=== PATIENT | male | born 1960 | race Caucasian/White ===

== ENCOUNTER → 2017-03-11 | Outpatient (CLI) | payer BC ==
[~2017-03-11] MED LIST: CITA10TA8 PO; GABA-112 PO; LISI5TAB3 PO; LORA1TAB13 PO; MORP1TAB11 PO; MULTTAB58 PO; OMEG1CAP84; niacin PO
--- NOTE | 2017-03-11 12:39 | DIAGNOSTIC IMAGING REPORT ---
LUMBAR SPINE WITHOUT HISTORY: 56 years-old Male LUMBAR SPINE PAIN acute lumbar spine pain. History of lumbar spine fusion and discectomy COMPARISON: Spot fluoroscopic images of the lumbar spine 09/25/2012, chest radiographs 09/06/2012 TECHNIQUE: Multiple axial CT images of the lumbar spine were obtained without contrast FINDINGS: There is a catheter device entering the central canal at the T11-T12 level posterior epidural space which extends superiorly outside the [id number]. This suggests a pain pump catheter with portions of the catheter along the right paraspinal tissues. Postoperative changes compatible with prior laminectomy with posterior interbody aron and screw fusion and discectomy again seen at L5-S1. Alignment is satisfactory. No evidence of hardware complication.Schmorl's node involves the superior endplate L1. Mild multilevel endplate spurring is noted with mild to moderate facet arthropathy. There is transitional lumbosacral anatomy with a rudimentary disc space seen S1-S2. Mild emphysematous changes of the lung bases are noted with areas of mild bibasilar atelectasis. No acute abnormality identified within the abdomen or pelvis. There is atherosclerosis of the aorta. Calcifications throughout the spleen are noted. L1-L2: Mild facet arthrosis without central canal or foraminal narrowing. L2-L3: Small circumferential annular disc bulge with minimal posterior spondylitic spurring and mild facet arthropathy. There is mild central canal and mild inferior bilateral foraminal narrowing. L3-L4: Posterior spondylitic spurring with ligament flavum thickening, mild to moderate facet arthrosis and circumferential annular disc bulge along with mild epidural lipomatosis causes mild to moderate central canal, moderate left and mild to moderate right foraminal narrowing. L4-L5: Streak artifact from hardware partially obscures this level. There is moderate facet arthrosis with circumferential annular disc bulge, mild posterior intervertebral disc space narrowing with posterior spondylitic spurring which causes moderate central canal and severe left and moderate severe right foraminal narrowing. L5-S1: Operative changes at this level with streak artifact. Posterior spondylitic spurring without high-grade central canal narrowing identified. There appears to be moderate bilateral foraminal narrowing. IMPRESSION: 1. No acute lumbar spine fracture or subluxation. 2. Prior posterior decompression with interbody aron and screw fusion and discectomy at L5-S1. No evidence of hardware complication or malalignment. 3. Facet arthropathy and annular disc bulging as above causes varying degrees of central canal and foraminal narrowing. 4. Pain pump catheter is seen adjacent to the posterior epidural space at T11-T12 extending superiorly outside the [id number] with distal tip not imaged. The above report was generated using voice recognition software. It may contain grammatical, syntax or spelling errors. Electronically signed by: Jean Carlos Lyn M.D. 03/11/2017 12:38 PM Dictated Date/Time: 03/11/2017 12:18 PM
== END | disposition home or self-care (01) ==
LOC: C.CTS 11:59
PROVIDERS: ATTEND Physician Assistant
DX: M54.5 Low back pain (principal)